=== PATIENT | male | born 1955 | race Caucasian/White ===

== ENCOUNTER → 2019-10-23 | Outpatient (CLI) | payer OTHER ==
[~2019-10-23] MED LIST: AXID300 MG PO; AZITHROMYCIN 2250 MG PO; CHLORTHALIDONE25 MG; CHLORTHALIDONE25 MG PO; DIOVAN HCT 1601 EAC1; FISH OIL 1,001000 M2 PO; FLEXERIL PO; KLOR-CON SPRIN10 MEQ PO; LASIX 20 MG TAB20 MG PO; LOSARTAN POTAS100 MG PO; LOVAZA1000 MG; NORCO 5-325 TA1 EACH PO; PRILOSEC 10MG C10 MG; VENTOLIN HFA INH8 GM INH
== END ==
LOC: CAT 11:52
PROVIDERS: ATTEND Internal Medicine Cardiovascular Disease
DX: Z13.6 Encounter for screening for cardiovascular disorders (principal); E78.00 Pure hypercholesterolemia, unspecified; I25.10 Atherosclerotic heart disease of native coronary artery without angina pectoris